=== PATIENT | male | born 1960 | race Caucasian/White ===

== ENCOUNTER 2022-06-18 19:31 | Emergency (ER) | payer MEDICAID ==
[~2022-06-18] VITALS: Ht 172.7 cm; Wt 77.0 kg
[2022-06-18 19:47] VITALS: BP 120/79
== END 2022-06-19 05:26 | disposition home or self-care (01) ==
LOC: ER 19:31
DX: F10.129 Alcohol abuse with intoxication, unspecified (principal); Y90.8 Blood alcohol level of 240 mg/100 ml or more; F41.9 Anxiety disorder, unspecified; F32.9 Major depressive disorder, single episode, unspecified
CPT/HCPCS: 36415; 80320; 99283; G0480

== ENCOUNTER 2022-06-19 15:02 | Emergency (ER) | payer MEDICAID ==
[~2022-06-19] VITALS: Ht 170.2 cm; Wt 75.0 kg
[2022-06-19] MEDS ORDERED: LACTATED RINGERS 1,000 ML IV SCH (16:30)
[2022-06-19] MEDS ORDERED: CHLORDIAZEPOXIDE 25MG CAPSULE PO ONE (16:30)
[2022-06-19 16:41] LABS: MEAN CORPUSCULAR HEMOGLOBIN 30.6 pg (28.0-32.0); MEAN CORPUSCULAR VOLUME 92.1 fL (80.0-94.0); PLATELET 192 x1000/uL (130-400); RED BLOOD CELL COUNT 4.23 mill/uL (4.7-6.1); RED CELL DISTRIBUTION WIDTH 18.8 % (11.6-14.6)
[2022-06-19 16:47] LABS: CHLORIDE 106 mEq/L (98-107)
[2022-06-19 17:31] LABS: ETHANOL BLOOD 366 mg/dL
[2022-06-19 20:30] VITALS: BP 112/78
== END 2022-06-19 22:00 | disposition home or self-care (01) ==
LOC: ER 15:05
DX: F10.239 Alcohol dependence with withdrawal, unspecified (principal); F41.9 Anxiety disorder, unspecified; F32.9 Major depressive disorder, single episode, unspecified; F17.210 Nicotine dependence, cigarettes, uncomplicated; Y90.8 Blood alcohol level of 240 mg/100 ml or more
CPT/HCPCS: 36415; 80053; 80320; 85027; 96360; 99283; J7120; G0480

== ENCOUNTER 2022-06-20 00:49 | Emergency (ER) | payer MEDICAID ==
[~2022-06-20] VITALS: Ht 165.1 cm; Wt 68.1 kg
[2022-06-20 01:06] VITALS: BP 148/73
== END 2022-06-20 02:12 | disposition home or self-care (01) ==
LOC: ER 00:49
DX: F10.129 Alcohol abuse with intoxication, unspecified (principal); Y90.9 Presence of alcohol in blood, level not specified; R10.9 Unspecified abdominal pain; G89.29 Other chronic pain; F32.9 Major depressive disorder, single episode, unspecified; F41.9 Anxiety disorder, unspecified
CPT/HCPCS: 99281

== ENCOUNTER 2022-06-23 19:54 | Emergency (ER) | payer MEDICAID ==
[~2022-06-23] VITALS: Ht 165.1 cm; Wt 73.0 kg
[2022-06-23] MEDS ORDERED: SODIUM CHLORIDE 0.9% 1,000 ML IV ONE (21:00)
[2022-06-23] MEDS ORDERED: FAMOTIDINE 20MG/2ML VIAL IV ONE (21:00)
[2022-06-23] MEDS ORDERED: ONDANSETRON HCL 4MG/2ML INJ IV ONE (21:00)
[2022-06-23 21:45] LABS: EOSINOPHILS % 4.7 % (0.0-5.0); HEMATOCRIT. 43.6 % (42.0-52.0); HEMOGLOBIN. 14.8 g/dL (14.0-18.0); LYMPHOCYTES % 38.6 % (20.0-50.0); MEAN CORPUSCULAR HEMOGLOBIN 31.3 pg (28.0-32.0); MEAN CORPUSCULAR VOLUME 92.6 fL (80.0-94.0); MEAN PLATELET VOLUME 7.7 fl (7.4-10.4); MONOCYTES % 5.8 % (2.0-8.0); NEUTROPHILS % 49.9 % (40.0-76.0); PLATELET 71 x1000/uL (130-400); RED BLOOD CELL COUNT 4.71 mill/uL (4.7-6.1); RED CELL DISTRIBUTION WIDTH 18.5 % (11.6-14.6)
[2022-06-23 21:54] LABS: CHLORIDE 106 mEq/L (98-107)
[2022-06-23 22:11] LABS: ETHANOL BLOOD 393 mg/dL
[2022-06-24 05:07] VITALS: BP 133/89
== END 2022-06-24 05:08 | disposition home or self-care (01) ==
LOC: ER 19:54
DX: F10.229 Alcohol dependence with intoxication, unspecified (principal); F32.A Depression, unspecified; F41.9 Anxiety disorder, unspecified; Y90.8 Blood alcohol level of 240 mg/100 ml or more
CPT/HCPCS: 36415; 80053; 80320; 85025; 96361; 96374; 96375; 99284; J2405; J3490; J7030; G0480